=== PATIENT | female | born 1960 | race Caucasian/White ===

== ENCOUNTER 2022-07-24 23:57 | Emergency (ER) | payer MEDICAID ==
[~2022-07-24] VITALS: Ht 175.3 cm; Wt 68.0 kg
--- NOTE | 2022-07-25 00:50 | NUR ---
Pt returned from CT, tolerated well. c-collar remains in place. Lab at bedside drawing blood. no s/s of acute distress noted.
[2022-07-25 01:03] LABS: HEMATOCRIT 44.5 % (31.2-41.9); MEAN CORPUSCULAR HEMOGLOBIN 31.8 uug (24.7-32.8); MEAN CORPUSCULAR VOLUME 92.6 fL (75.5-95.3); PLATELET COUNT (AUTO) 250 K/uL (179-408)
[2022-07-25 01:14] LABS: BILIRUBIN,TOTAL 0.3 mg/dL (0.2-1.0); CREATININE 0.8 mg/dL (0.6-1.3); POTASSIUM 3.6 mmol/L (3.5-5.1); TOTAL PROTEIN, SERUM 7.1 g/dL (6.4-8.2)
--- NOTE | 2022-07-25 01:28 | NUR ---
Pt given pitcher of water. Pt drank 1/4 of water, tolerated well, no nausea/vomting.
--- NOTE | 2022-07-25 02:59 | NUR ---
Pt requested to go home. Per MD, pt okay to be d/c if pt passes ambulation trial. Pt ambulated without assistance and with steady gait. Waiting for pt's cab to arrive.
--- NOTE | 2022-07-25 03:17 | NUR ---
Pt cleared for d/c by . explained results, after care instructions and s/s of worsening condition to return to ED. No s/s of acute distress noted at time of departure from ED.
[2022-07-25 03:18] VITALS: BP 119/79
== END 2022-07-25 03:19 | disposition home or self-care (01) ==
LOC: ER 07-25 00:02 → EDBD 07-25 00:02 → ER 07-25 03:19
DX: S00.83XA Contusion of other part of head, initial encounter (principal); W18.30XA Fall on same level, unspecified, initial encounter; Y92.019 Unspecified place in single-family (private) house as the place of occurrence of the external cause; F10.229 Alcohol dependence with intoxication, unspecified; Y90.8 Blood alcohol level of 240 mg/100 ml or more; R41.3 Other amnesia
CPT/HCPCS: 36415; 70450; 72125; 85025; A4663; G0480